=== PATIENT | female | born 1965 | race Caucasian/White ===

== ENCOUNTER 2025-03-24 08:24 | Outpatient (CLI) | payer OTHER ==
[2025-03-24 10:07] LABS: BASO % 1.0 % (0.1-1.2); EOS # 0.15 (0.04-0.54); EOS % 2.9 % (0.7-7.0); LYMPH # 1.56 (1.18-3.74); LYMPH % 30.2 % (19.3-53.1); MEAN PLATELET VOLUME 9.20 fl (9.4-12.4); MONO # 0.49 (0.24-0.82); MONO % 9.5 % (4.7-12.5); NEUT # 2.89 (1.56-6.13); NEUT % 56.0 % (34.0-71.1); RED CELL DISTRIBUTION WIDTH 13.5 % (11.6-14.4)
== END 2025-03-24 08:29 | disposition home or self-care (01) ==
LOC: LAB 08:24
DX: J45.50 Severe persistent asthma, uncomplicated (principal); J30.9 Allergic rhinitis, unspecified; Z13.0 Encounter for screening for diseases of the blood and blood-forming organs and certain disorders involving the immune mechanism

== ENCOUNTER 2025-03-24 09:40 | Outpatient (CLI) | payer OTHER | END 2025-03-24 09:43 | disposition home or self-care (01) | LOC: RAD 09:40 | PROVIDERS: ATTEND Internal Medicine Pulmonary Disease | DX: R05.9 Cough, unspecified (principal); R06.02 Shortness of breath; J45.50 Severe persistent asthma, uncomplicated ==

== ENCOUNTER 2025-05-19 06:27 | Outpatient (CLI) | payer OTHER ==
[2025-05-19 08:10] LABS: URINE APPEARANCE Clear; URINE BILIRRUBIN Negative (NEGATIVE); URINE BLOOD Negative; URINE COLOR Yellow; URINE GLUCOSE Negative (NEGATIVE); URINE KETONE Negative (NEGATIVE); URINE LEUKOCYTE Small; URINE NITRATE Negative; URINE PROTEIN Negative (NEGATIVE); URINE UROBILINOGEN 0.2 E.U./dl
[2025-05-19 08:14] LABS: URINE BACTERIA 22.8 uL (0.0-1933); URINE CAST 0.00 uL (0.0-1.40); URINE EPITHELIAL CELLS 3.9 uL (0.0-38.8); URINE RBC 4.1 uL (0.0-20.8); URINE WBC 15.1 uL (0.0-23.2)
[2025-05-19 08:17] LABS: CHOL HDL RATIO 3.6 (0-5.0); HDL 62.0 mg/dl (40-60); LDL 139.0 mg/dl (0-130); VLDL 21.0 (0-39)
[2025-05-19 08:23] LABS: CREATININE URINE RANDOM 131.0 MG/DL (30-125)
== END 2025-05-19 06:31 | disposition home or self-care (01) ==
LOC: LAB 06:27
DX: C78.00 Secondary malignant neoplasm of unspecified lung (principal); C50.912 Malignant neoplasm of unspecified site of left female breast; E78.5 Hyperlipidemia, unspecified; R80.9 Proteinuria, unspecified